=== PATIENT | female | born 1960 | race American Indian/Alaskan Native ===

== ENCOUNTER 2018-12-02 15:01 | Emergency (ER) | payer OTHER ==
[2018-12-02] MEDS ORDERED: ZOFRAN ODT PO ONE (15:10)
[2018-12-02 15:11] VITALS: BP 145/102
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
[2018-12-02] MEDS ORDERED: ZOFRAN ODT ONE (15:13)
[2018-12-02 15:58] LABS: Hematocrit 42.9 % (30.3-42.9); Hemoglobin 14.3 gm/dl (10.1-14.3); Mean Corpuscular HGB Conc 33 % (30-34); Mean Corpuscular Volume 85 fl (79-97); Platelet Count 222 K/mm3 (140-440); Red Blood Count 5.02 M/mm3 (3.65-5.03); Red Cell Distribution Width 14.8 % (13.2-15.2)
[2018-12-02] MEDS ORDERED: ZOFRAN IV ONE (16:03)
[2018-12-02] MEDS ORDERED: NACL 0.9% 1000 ML 1,000 ML IV ONE (16:03)
[2018-12-02] MEDS ORDERED: MORPHINE IV ONE (16:03)
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
[2018-12-02 17:02] LABS: Alanine Aminotransferase 25 units/L (7-56); Albumin 4.6 g/dL (3.9-5); BUN/Creatinine Ratio 17; Blood Urea Nitrogen 12 mg/dL (7-17); Calcium 9.8 mg/dL (8.4-10.2); Hemolysis Index 14
[2018-12-02 18:16] LABS: Bilirubin,Urine NEG (Negative); Blood,Urine NEG (Negative); Color,Urine Yellow (Yellow); Hyaline Casts,Urine 1 /LPF; Mucus,Urine FEW /HPF; Protein,Urine <15 mg/dL mg/dL (Negative); Urobilinogen,Urine < 2.0 mg/dL (<2.0)
--- NOTE | 2018-12-02 18:47 | Cat Scan Report ---
PROCEDURE: CT ABDOMEN PELVIS W CON TECHNIQUE: Computerized axial tomography of the abdomen and pelvis was performed after the IV inject ion of iodinated nonionic contrast. Coronal and sagittal reconstruction was also performed. CONTRAST: 100 mL Isovue [address] DOSE LENGTH PRODUCT: 468.38 mGycm HISTORY: abdominal pain COMPARISONS: None . FINDINGS: There is a small amount of edema of the wall of the duodenal bulb (axial image 44/176, coronal image 38/120). Findings suggest duodenitis. This could also be related to ulcer disease. No evidence for pe rforation or surrounding inflammation in the adjacent fat is noted. Within the abdomen, the liver, spleen, pancreas, gallbladder, adrenal glands, and left kidney are unr emarkable. An 8.5 mm low-density cyst in the posterior upper pole right kidney is noted. No evidence for retroperitoneal or pelvic lymphadenopathy is seen. The bowel loops have normal caliber. No soft t issue mass, fluid collection, inflammatory change, or free air is seen within the abdomen or pelvis. The appendix is normal. Within the pelvis, the bladder is unremarkable. The uterus is normal. No evidence for mass or lymphad enopathy is seen in the pelvis. Images through the upper abdomen include the lung bases which are expanded and clear. Bony structures show no focal abnormalities and are intact. IMPRESSION: 1. Edema of the wall of the duodenal bulb. Findings suggest acute tendinitis versus ulcer disease. No evidence for perforation is seen 2. Low-density cyst in the upper pole right kidney This document is electronically signed by Sommer Paulino MD., December 02 2018 06:45:28 PM ET
== END 2018-12-02 18:58 | disposition home or self-care (01) ==
LOC: ED 15:01
DX: R10.13 Epigastric pain (principal); R11.2 Nausea with vomiting, unspecified; F17.200 Nicotine dependence, unspecified, uncomplicated
CPT/HCPCS: 36415; 74177; 80053; 81001; 83690; 85027; 96361; 96374; 96375; 99284; J2270; J2405; J7030; Q9967; Q0162